=== PATIENT | male | born 1995 | race Caucasian/White ===

== ENCOUNTER 2017-03-22 15:02 | Emergency (ER) | payer OTHER ==
[~2017-03-22] VITALS: Ht 170.2 cm; Wt 77.1 kg
--- NOTE | 2017-03-22 15:15 | ED PSYCHIATRIC COMPLAINT ---
History of Present Illness General Chief Complaint: Altered Mental Status Stated Complaint: BIBA ALTER MENTAL STATUS; ETOH Source: patient, old records, EMS Exam Limitations: intoxication Vital Signs & Intake/Output Vital Signs & Intake/Output Vital Signs Date Time Temp Pulse Resp B/P B/P Pulse O2 O2 Flow FiO2 Mean Ox Delivery Rate 03/22 1807 98.8 88 18 125/86 98 Room Air 03/22 1545 Room Air 03/22 1503 96.1 76 18 116/62 99 Room Air ED Intake and Output 03/23 0000 03/22 1200 Intake Total Output Total Balance Patient 170 lb Weight Weight Reported by Patient Measurement Method Allergies Coded Allergies: No Known Allergies (12/29/15) Triage Nurses Notes Reviewed? yes Onset: Abrupt Duration: day(s): (1), constant Timing: recent history Severity: moderate Severity Numbers: 5 Associated Symptoms: intoxication HPI: 21-year-old male presents to ER for evaluation brought in by ambulance after he was found intoxicated at a [facility] area on arrival the patient is agitated he declines wishing to speak with crisis he denies wanting detox. He denies suicidal or homicidal ideation. The patient denies any complaints at this time is demanding to be let go (JOSE VAZ) Past History Travel History Traveled to [place] past 21 day No Medical History Any Pertinent Medical History? see below for history Psychiatric: anxiety Surgical History Surgical History: non-contributory Psychosocial History What is your primary language [place] Family History Hx Contributory? No (JOSE VAZ) Review of Systems Review of Systems Constitutional: Reports: see HPI. All Other Systems: Reviewed and Negative Comments Review of systems: Limited secondary to intoxication Constitutional, no chills no fever, no malaise HEENT: No visual changes no sore throat no congestion Cardiovascular: No chest pain , no palpitation Skin: no rashes, no change in skin Respiratory: No dyspnea no cough no sputum GI: No nausea no vomiting, no diarrhea, : No dysuria Muscle skeletal: No joint pain, no back pain, no neck pain, Neurologic: no headache Psych: No stress Heme/endocrine: No bruising Immunology: No lymphadenopathy (JOSE VAZ) Physical Exam Physical Exam General Appearance: well developed/nourished, no apparent distress, alert, awake Neurological/Psychiatric: awake, agitated Comments: Intoxicated agitated male HEENT: Normal EENT exam; PERRL, EOMI HEAD is atraumatic. moist mucous membranes. Neck: Supple, normal range of motion Back: Nontender. Full range of motion Cardiovascular: Regular rate and rhythms no murmurs rubs Respiratory: No respiratory distress. Patient speaking in full complete sentences. Breath sounds clear to auscultation bilaterally: NO W/R/R Abdomen: Soft, nontender nondistended, Extremity: No edema, full range of motion of extremities Neuro: Alert oriented x3, motor sensory normal, There were no obvious focal neurologic abnormalities. Skin: No appreciable rash on exposed skin, skin is warm and dry. Psych: Mood and affect is normal, memory and judgment is normal. SAD PERSONS Done? patient not suicidal (JOSE VAZ) Progress Differential Diagnosis: drug intoxication, drug overdose, electrolyte abnormality Plan of Care: Orders Procedure Date/time Status Restraint- Behavioral (Order) 03/22 1710 Complete Patient is intoxicated agitated he is declining wishing detox he denies suicidal or homicidal ideation he is demanding to go home discussed with him that he can leave as long as a sober individual comes into the department to pick him up. Case was discussed with Dr. Sadler. The patient was able to be descalated, he is calm and cooperative with talking with myself he is attempting to find a ride we will hold off changing the patient pacing in the restraints were medicating him at this time as long as he remains cooperative and calm and does not attempt to elope 1939 patient sleeping awaiting ride (JOSE VAZ) Departure Departure Disposition: HOME OR SELF CARE Condition: Stable Clinical Impression Primary Impression: Alcohol intoxication Referrals: PATIENT HAS NO PRIMARY CARE DR Additional Instructions: RETURN IF YOU WISH TO SEEK ALCOHOL DETOX. STOP DRINKING ALCOHOL Departure Forms: Customer Survey General Discharge Information (JOSE VAZ) PA/DAIRY NUTRITION SPECIALIST Co-Sign Statement Statement: ED Attending supervision documentation- [] I saw and evaluated the patient. I have also reviewed all the pertinent lab results and diagnostic results. I agree with the findings and the plan of care as documented in the PA's/DAIRY NUTRITION SPECIALIST's documentation. [X] I have reviewed the ED Record and agree with the PA's/DAIRY NUTRITION SPECIALIST's documentation. [] Additions or exceptions (if any) to the PAs/DAIRY NUTRITION SPECIALIST's note and plan are summarized below: [] (FLORY ARREDONDO,GWEN Freeman)
[2017-03-22 18:07] VITALS: BP 125/86
== END 2017-03-22 18:40 ==
LOC: ERH 15:02
DX: F10.129 Alcohol abuse with intoxication, unspecified (principal); R45.1 Restlessness and agitation
CPT/HCPCS: 96372; J1200; J1630